=== PATIENT | female | born 1940 | race Caucasian/White ===

== ENCOUNTER → 2017-08-11 | Outpatient (CLI) | payer MEDICARE, BC ==
[~2017-08-11] MED LIST: ASPIRIN ENTERI325 M1 PO; ASPIRIN325 M1 PO; ATORVASTATIN CA40 MG PO; BAYER ASPIRIN325 M1 PO; CA CARBONATE PO; CALCIUM + D 6001 TA1 PO; CERTAGEN PO; COATED ASPIRIN325 M1 PO; COLACE PO; CRANBERRY200 MG PO; CRANBERRY300 MG PO; CRANBERRY500 MG PO; CYANOCOBAL1000 MCG/1 IJ; FERRO-TIME325 MG PO; FISH OIL 1,001000 MG PO; FISH OIL 10001000 MG PO; FOLIC ACID1 MG PO; HYDROCODON-ACE1 EAC7 PO; HYDROCODONE-APA1 T30 PO; IBUPROFEN PO; LORTAB 5/500 TA1 TA2 PO; LORTAB 7.5-5001 TAB PO; LORTAB 7.51 TAB 7.5/ PO; LOVENOX40 MG/0.4 INJ; MULTI VITAMIN1 EACH PO; OMEPRAZOLE20 M2 PO; PANTOPRAZOLE SO40 MG PO; PROLIA60 MG/1 ML SQ; VITAMIN D1000 UNI1 PO; VITAMIN D3400 UNIT PO; ZOLOFT50 MG PO
--- NOTE | ~2017-08-11 | MY29 ---
[facility] A Service of [facility] RADIOLOGY TEXT RESULTS PATIENT: GARRISON VENTURA LOCATION: [facility] : 42 UNIT #: [id number] AGE: [address]: Brenda Randall MD SEX: F ORDER DR: [id number] [facility] [address] [place], [place] [address] [id number] O MR#: [id number] Acc #: [id number] NAME: GARRISON VENTURA : 1940 SEX: F STUDY DATE/TIME: 08/11/2017 13:06 UNIT: [facility] ROOM: STUDY DESCRIPTION: MY QUINCY SCREENING W/ CAD BILAT Attending Physician: Brenda Randall M.D. Referring Physician: Brenda Randall M.D. Ordering Physician: Brenda Randall M.D. Primary Care Physician: Brenda Randall M.D. MEDICAL IMAGING REPORT This report is preliminary unless electronic signature is present EXAM Digital screening mammogram with CAD. INDICATIONS Routine screening. PROCEDURE Bilateral CC and MLO views obtained on a digital mammography unit and FDA-approved CAD device was utilized. COMPARISON 05/18/2016. FINDINGS Scattered fibroglandular density. No dominant mass or suspicious calcification. IMPRESSION Negative screening mammogram. Screen interval 1 year suggested. Patients over the age of 40 are entered into a reminder system with target due date for the next mammogram. A result letter will be sent to the patient. BIRADS: 1 Negative. Dictated by... Talib Mercer M.D. THIS IS AN ELECTRONICALLY VERIFIED REPORT Talib Mercer M.D. at 08/13/2017 12:12 PM EED/gz [facility] A Service of [facility] RADIOLOGY TEXT RESULTS PATIENT: GARRISON VENTURA LOCATION: [facility] : 44 UNIT #: [id number] AGE: [address]: Brenda Randall MD SEX: F ORDER DR: TD: 08/12/2017 07:04 JOB #: [id number] MEDICAL IMAGING REPORT Page 1 of 1 COPY
== END | disposition home or self-care (01) ==
LOC: CWCC 12:57
DX: Z12.31 Encounter for screening mammogram for malignant neoplasm of breast (principal)
CPT/HCPCS: G0202

== ENCOUNTER → 2017-08-12 | Outpatient (CLI) | payer MEDICARE, BC ==
--- NOTE | ~2017-08-12 | MR15 ---
[facility] A Service of [facility] RADIOLOGY TEXT RESULTS PATIENT: GARRISON VENTURA LOCATION: [facility] : 44 UNIT #: [id number] AGE: [address]: Kash Chapman MD SEX: F ORDER DR: [id number] [facility] [address] [place], [place] [address] [id number] O MR#: [id number] Acc #: [id number] NAME: GARRISON VENTURA : 1940 SEX: F STUDY DATE/TIME: 08/12/2017 14:30 UNIT: [facility] ROOM: STUDY DESCRIPTION: MR Brain W IACS WWo Contrast Attending Physician: Kash Chapman M.D. Referring Physician: Kash Chapman M.D. Ordering Physician: Kash Chapman M.D. Primary Care Physician: Brenda Randall M.D. MRI CENTER REPORT This report is preliminary unless electronic signature is present. EXAM MRI of the brain and IACs with and without contrast. 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 TECHNIQUE Multiplanar imaging of the brain was performed with thin detailed sections through the IACs with and without contrast. 12 mL of MultiHance was used. COMPARISON Scan from 02/21/2010. FINDINGS On diffusion weighted images. there is no evidence of abnormal restricted diffusion to suggest a recent infarct. The routine brain images show mild atrophy with mild chronic ischemic changes in the periventricular deep white matter. There is no evidence of mass lesion, hemorrhage or edema. Thin detailed sections through the IACs show no evidence of acoustic neuroma or other cerebellopontine angle mass. No abnormal contrast enhancement is seen. Extraaxial structures are unremarkable. IMPRESSION Mild atrophy with mild chronic ischemic changes around the ventricles. No acute findings. No significant change from the previous scan. There is no evidence of acoustic neuroma or other cerebellopontine angle mass. Dictated by... Shashank Cullen M.D. THIS IS AN ELECTRONICALLY VERIFIED REPORT Shashank Cullen M.D. at 08/13/2017 4:57 PM STS. [facility] A Service of [facility] RADIOLOGY TEXT RESULTS PATIENT: GARRISON VENTURA LOCATION: [facility] : 44 UNIT #: [id number] AGE: [address]: Kash Chapman MD SEX: F ORDER DR: [place] TD: 08/13/2017 13:27 JOB #: [id number] MRI CENTER REPORT Page 1 of 1 COPY
[2017-08-12 14:35] LABS: POC - CREATININE 0.96 mg/dL (0.44-1.03)
== END | disposition home or self-care (01) ==
LOC: CMRI 13:26
PROVIDERS: Specialist
DX: H90.5 Unspecified sensorineural hearing loss (principal); H93.19 Tinnitus, unspecified ear; G31.9 Degenerative disease of nervous system, unspecified
CPT/HCPCS: 70553; 82565; A9577